=== PATIENT | male | born 1955 | race Caucasian/White ===

== ENCOUNTER 2020-10-10 12:32 | Emergency (ER) | payer OTHER ==
--- NOTE | 2020-10-10 13:22 | EDM.PDOC ---
ED HPI GENERAL MEDICAL PROBLEM - General Chief Complaint: Cardiovascular Problem Stated Complaint: HIGH BLOOD PRESSURE /PALPITATIONS Time Seen by Provider: 10/10/20 13:32 Source of Information: Reports: Patient History Limitations: Reports: No Limitations - History of Present Illness INITIAL COMMENTS - FREE TEXT/NARRATIVE: 65-year-old male presents to the ED at the request of his primary care provider. He attended the clinic today and was identified to have a markedly elevated diastolic blood pressure . He reports 113. He has been on amlodipine 5 mg once daily for blood pressure control for many years. Has been on on omalsartan 20 mg daily for blood pressure control for about 2 years. He is on no beta- blockers or calcium channel blockers. He has no symptoms of feeling dizzy lightheaded short of breath or weak in the legs. [place] upon arrival in the emergency room and put on the monitor his heart rate is in the upper 30s 36 to 38/min. Again he has no chest pain and is asymptomatic in this regard. His blood pressure was 140/85. Onset: Today Onset Date: 10/10/20 (To have an elevated blood pressure i.e. diastolic blood pressure of 113 at the clinic today and sent to the ED for eval of evaluation of this regard.) Duration: Other (Patient is asymptomatic) Location: Reports: Other (Elevated blood pressure) Quality: Reports: Other (Asymptomatic) Improves with: Reports: Other (Problems identified upon reaching the ED with normal diastolic blood pressures. The highest was 88) Worsens with: Reports: None ( in the ED.) Context: Denies: Activity, Exercise, Lifting, Sick Contact, Trauma, Other Associated Symptoms: Denies: No Other Symptoms, Confusion, Chest Pain, Cough, cough w sputum, Diaphoresis, Fever/Chills, Headaches, Loss of Appetite, Malaise, Nausea/Vomiting, Rash, Seizure, Shortness of Breath, Syncope Treatments [employer]ER: Reports: Other (see below) - Related Data Allergies Allergy/AdvReac Type Severity Reaction Status Date / Time No Known Allergies Allergy Verified 10/10/20 13:01 Home Meds: Home Meds Olmesartan [Benicar] 20 mg PO BEDTIME 10/10/20 [History] Rosuvastatin [Crestor] 10 mg PO DAILY 10/10/20 [History] amLODIPine Besylate [Amlodipine Besylate] 5 mg PO DAILY 10/10/20 [History] Past Medical History Cardiovascular History: Reports: High Cholesterol, Hypertension Respiratory History: Reports: COPD ([id number] history of cigarette smoking) Gastrointestinal History: Reports: GERD Social & Family History - Tobacco Use Tobacco Use Status *Q: Current Every Day Tobacco User Tobacco Use Within Last Twelve Months: Cigarettes Years of Tobacco use: 40 Packs/Tins Daily: 1 - Recreational Drug Use Recreational Drug Use: No - Living Situation & Occupation Living situation: Reports: Occupation: Employed ED ROS GENERAL - Review of Systems Review Of Systems: See Below Constitutional: Reports: Fatigue. Denies: Fever, Chills, Malaise, Weakness, Decreased Appetite, Weight Loss (Usual for him.) HEENT: Reports: Glasses Respiratory: Reports: Shortness of Breath, Cough, Sputum (In the mornings.). Denies: Wheezing, Pleuritic Chest Pain (On occasion.), Hemoptysis (Very nonproductive cough) Cardiovascular: Reports: Blood Pressure Problem, Edema (K is known trace around his socks in the evenings.). Denies: Chest Pain (Occasional brown sputum production), Claudication, Dyspnea on Exertion, Lightheadedness, Orthopnea, Palpitations, PND, Syncope, Other Endocrine: Reports: Fatigue GI/Abdominal: Reports: Other : Reports: Frequency, Other Musculoskeletal: Reports: Neck Pain (Michael usually x1-2.), Shoulder Pain, Back Pain, Joint Pain (He is and hips at times.) Skin: Reports: No Symptoms Neurological: Reports: No Symptoms Psychiatric: Reports: No Symptoms ED EXAM, GENERAL - Physical Exam Exam: See Below Exam Limited By: No Limitations General Appearance: Alert, WD/WN, No Apparent Distress, Other (Temperature is 36.9. Heart rate is recorded at 36/min. This is confirmed on my evaluation. Respiratory to 16 blood pressure was 140/85. Pulse ox 94% on room air.) Eye Exam: Bilateral Eye: Normal Inspection, PERRL Ears: Normal TMs Throat/Mouth: Normal Inspection, Normal Lips, Normal Oropharynx Head: Atraumatic, Normocephalic Neck: Normal Inspection, Supple, Non-Tender, Full Range of Motion. No: Carotid Bruit, Lymphadenopathy (L), Lymphadenopathy (R) Respiratory/Chest: No Respiratory Distress, Lungs Clear, Normal Breath Sounds, No Accessory Muscle Use, Decreased Breath Sounds (Sounds are mildly diminished to the posterior lung callejas by about 10%.) Cardiovascular: No Edema, No Gallop (Bradycardia 39/min), No Murmur, No Rub, Bradycardia Peripheral Pulses: 2+: Carotid (L), Carotid (R), Posterior Tibial (L), Posterior Tibial (R), Dorsalis Pedis (L), Dorsalis Pedis (R) GI/Abdominal: Normal Bowel Sounds, Soft, Non-Tender, No Organomegaly, No Mass, Pelvis Stable, Other (Male) Exam: No Hernia (No surgical scars) Back Exam: Normal Inspection, Full Range of Motion. No: CVA Tenderness (L), CVA Tenderness (R) Extremities: Normal Inspection, Normal Range of Motion, Non-Tender, Pedal Edema Neurological: Alert (Race pedal edema at the ankles), Oriented, CN II-XII Inta ct, Normal Cognition Psychiatric: Normal Affect, Normal Mood Skin Exam: Warm, Dry, Intact, Normal Color, No Rash #1 Interpretation EKG Date: 10/10/20 Time: 13:00 Rhythm: Other Rate (Beats/Min): 38 [place]: Normal P-Wave: Present QRS: Other (There is a nonspecific intraventricular conduction delay) ST-T: Normal QT: Normal EKG Interpretation Comments: Abnormal ECG Course - Vital Signs Last Recorded V/S: Last Vital Signs Temp 36.9 C 10/10/20 12:59 Pulse 38 L 10/10/20 15:00 Resp 16 10/10/20 15:00 BP 134/80 10/10/20 15:00 Pulse Ox 98 10/10/20 15:00 - Orders/Labs/Meds Labs: Laboratory Tests 10/10/20 10/10/20 10/10/20 Range/Units 13:00 13:00 13:00 WBC 8.73 (4.23-9.07) K/mm3 RBC 4.45 L (4.63-6.08) M/mm3 Hgb 14.8 (13.7-17.5) gm/dl Hct 44.6 (40.1-51.0) % MCV 100.2 H (79.0-92.2) fl MCH 33.3 H (25.7-32.2) pg MCHC 33.2 (32.2-35.5) g/dl RDW Std Deviation 47.7 H (35.1-43.9) fL Plt Count 189 (163-337) K/mm3 MPV 10.4 (9.4-12.3) fl Neut % (Auto) 63.2 (34.0-67.9) % Lymph % (Auto) 25.7 (21.8-53.1) % [place] % (Auto) 8.1 (5.3-12.2) % Eos % (Auto) 2.3 (0.8-7.0) Baso % (Auto) 0.6 (0.1-1.2) % Neut # (Auto) 5.52 H (1.78-5.38) K/mm3 Lymph # (Auto) 2.24 (1.32-3.57) K/mm3 [place] # (Auto) 0.71 (0.30-0.82) K/mm3 Eos # (Auto) 0.20 (0.04-0.54) K/mm3 Baso # (Auto) 0.05 (0.01-0.08) K/mm3 Sodium 146 H (136-145) mEq/L Potassium 4.0 (3.5-5.1) mEq/L Chloride 109 H (98-107) mEq/L Carbon Dioxide 28 (21-32) mEq/L Anion Gap 13.0 (5-15) BUN 17 (7-18) mg/dL Creatinine 0.9 (0.7-1.3) mg/dL Est Cr Clr Drug Dosing 80.22 mL/min Estimated GFR (MDRD) > 60 (>60) mL/min BUN/Creatinine Ratio 18.9 H (14-18) Glucose 99 (70-99) mg/dL Calcium 8.7 (8.5-10.1) mg/dL Magnesium 1.9 (1.8-2.4) mg/dL Total Bilirubin 0.4 (0.2-1.0) mg/dL AST 14 L (15-37) U/L ALT 38 (16-63) U/L Alkaline Phosphatase 61 (46-116) U/L Troponin I 0.033 (0.00-0.056) ng/mL NT-Pro-B Natriuret Pep (0-125) pg/mL Total Protein 7.3 (6.4-8.2) g/dl Albumin 3.9 (3.4-5.0) g/dl Globulin 3.4 gm/dL Albumin/Globulin Ratio 1.2 (1-2) TSH 3rd Generation 1.601 (0.358-3.74) uIU/mL 10/10/20 Range/Units 13:00 WBC (4.23-9.07) K/mm3 RBC (4.63-6.08) M/mm3 Hgb (13.7-17.5) gm/dl Hct (40.1-51.0) % MCV (79.0-92.2) fl MCH (25.7-32.2) pg MCHC (32.2-35.5) g/dl RDW Std Deviation (35.1-43.9) fL Plt Count (163-337) K/mm3 MPV (9.4-12.3) fl Neut % (Auto) (34.0-67.9) % Lymph % (Auto) (21.8-53.1) % [place] % (Auto) (5.3-12.2) % Eos % (Auto) (0.8-7.0) Baso % (Auto) (0.1-1.2) % Neut # (Auto) (1.78-5.38) K/mm3 Lymph # (Auto) (1.32-3.57) K/mm3 [place] # (Auto) (0.30-0.82) K/mm3 Eos # (Auto) (0.04-0.54) K/mm3 Baso # (Auto) (0.01-0.08) K/mm3 Sodium (136-145) mEq/L Potassium (3.5-5.1) mEq/L Chloride (98-107) mEq/L Carbon Dioxide (21-32) mEq/L Anion Gap (5-15) BUN (7-18) mg/dL Creatinine (0.7-1.3) mg/dL Est Cr Clr Drug Dosing mL/min Estimated GFR (MDRD) (>60) mL/min BUN/Creatinine Ratio (14-18) Glucose (70-99) mg/dL Calcium (8.5-10.1) mg/dL Magnesium (1.8-2.4) mg/dL Total Bilirubin (0.2-1.0) mg/dL AST (15-37) U/L ALT (16-63) U/L Alkaline Phosphatase (46-116) U/L Troponin I (0.00-0.056) ng/mL NT-Pro-B Natriuret Pep 97 (0-125) pg/mL Total Protein (6.4-8.2) g/dl Albumin (3.4-5.0) g/dl Globulin gm/dL Albumin/Globulin Ratio (1-2) TSH 3rd Generation (0.358-3.74) uIU/mL - Radiology Interpretation Free Text/Narrative:: 65-year-old male presents to the ED for evaluation of elevated blood pressure recorded at the clinic with a diastolic apparently of 113. This obviously was inaccurate. Blood pressures here have been done over the last hour and the highest diastolic recorded was 88. Current blood pressure is 140/85. Of note though he is a sinus bradycardia of 36 to 40/min which is providing him with no symptoms. He does not know if this is new or old for him. Plan a chest x-ray will be done as well as an ECG and some routine labs including a serum magnesium and BNP. A TSH will also be done. Far as his blood pressure goes it does not appear that he needs to have any further changes to his medications. - Re-Assessments/Exams Free Text/Narrative Re-Assessment/Exam: 10/10/20 13:47 chest x-ray done portably reveals heart size and mediastinum to be within normal limits for portable technique. Lungs show no definitive acute parenchymal change. I feel there is mild diffuse vascular distention. Bony structures are grossly normal. 10/10/20 14:02 Sodium is 146 with a potassium of 4.0. Chloride 109 with a bicarb of 28. Anion gap is 13.0. BUN is 17 with a creatinine of 0.9 and a GFR greater than 60. Glucose is 99 with a calcium of 8.7. Liver function is normal. Troponin I is less than 0.033 total protein 7.3 with an albumin fraction of 3.9. 10/10/20 14:38 Magnesium is 1.9 troponin I was 0.033 BNP is 97. TSH is 1.601 all normal. Patient will therefore be discharged to home. At this time his blood pressure is 144/72 with a heart rate of 43 and O2 sats of 95% room air. Changes will be made to his medications at this time. Departure - Departure Time of Disposition: 14:39 Disposition: Home, Self-Care 01 Reason for Transfer *Q: Other Condition: Fair Clinical Impression: Essential hypertension with goal blood pressure less than 150/90, Essential hypertension, Bradycardia by electrocardiogram, Palpitations Instructions: Bradycardia, Adult Referrals: Juan Timmons MD [Primary Care Provider] - Forms: ED Department Discharge Additional Instructions: Evaluation in the emergency room today in regards to present Janie for evaluation of hypertension. Apparently at the clinic your diastolic or lower number of your blood pressure was markedly elevated at 113. Not sure how many times it was checked but in the ED it is never been above 90 diastolic which is the bottom number. The top numbers been between 136 and 144 which at this point time is okay. Of concern was heart rate in the 30s it was primarily 36-43. Lab tests completed in the ED revealed no reason for this to be present and is not causing any problems in particular your blood pressure is normal and you are not lightheaded or dizzy and having no chest pain. Therefore you can simply ignore it. Your thyroid function today was also normal. At this time no changes to your medications are to be made. Suggest follow-up with your primary care doctor in 3 to 4 weeks time unless further problems occur. May pursue all normal activities with no restrictions. Sepsis Event Note (ED) - Evaluation Sepsis Screening Result: No Definite Risk
--- NOTE | 2020-10-10 13:31 | CR ---
Chest: Portable view of the chest was obtained. Comparison: Prior chest x-ray of 03/24/19. Heart size and mediastinum are within normal limits for portable technique. Lungs show no definite acute parenchymal change. Bony structures are grossly intact. Impression: 1. Nothing acute is appreciated on portable chest x-ray. Diagnostic code #1
== END 2020-10-10 15:00 | disposition home or self-care (01) ==
LOC: JD.ED 12:32
DX: R00.1 Bradycardia, unspecified (principal); R00.2 Palpitations; E78.00 Pure hypercholesterolemia, unspecified; I10 Essential (primary) hypertension; J44.9 Chronic obstructive pulmonary disease, unspecified; Z72.0 Tobacco use; Z79.899 Other long term (current) drug therapy
CPT/HCPCS: 36415; 71045; 71045-26; 80053; 83735; 83880; 84443; 84484; 85025; 93005; 93010; 99284; 99285-25

== ENCOUNTER 2021-02-27 07:46 | Day surgery (SDC) | payer OTHER ==
[~2021-02-27 07:46] MED LIST: Lactated Ringers 1,000 ML IV SCH; Lidocaine 1%/Sod Bicarbonate in NS 8.4% 1 ML Syringe IDERM PRN; Sodium Chloride 0.9% 10 ML Syringe FLUSH SCH
[2021-02-27] MEDS ORDERED: Propofol 200 MG/20 ML SDV ONE (07:55)
[2021-02-27] MEDS ORDERED: Lidocaine 1% 4 ML ONE (07:55)
== END 2021-02-27 11:00 | disposition home or self-care (01) ==
LOC: JD.SDS 07:46
PROVIDERS: ATTEND Surgery
DX: D12.4 Benign neoplasm of descending colon (principal); D12.5 Benign neoplasm of sigmoid colon; K57.30 Diverticulosis of large intestine without perforation or abscess without bleeding; K64.8 Other hemorrhoids; K64.4 Residual hemorrhoidal skin tags; I48.91 Unspecified atrial fibrillation; I10 Essential (primary) hypertension; E66.3 Overweight; F17.210 Nicotine dependence, cigarettes, uncomplicated; J44.9 Chronic obstructive pulmonary disease, unspecified; E78.00 Pure hypercholesterolemia, unspecified; Z79.899 Other long term (current) drug therapy; Z79.82 Long term (current) use of aspirin; Z98.890 Other specified postprocedural states; Z80.0 Family history of malignant neoplasm of digestive organs; Z68.27 Body mass index [BMI] 27.0-27.9, adult; Z01.812 Encounter for preprocedural laboratory examination; Z20.822 Contact with and (suspected) exposure to COVID-19
CPT/HCPCS: 00812; J2704; J7120; U0002